=== PATIENT | male | born 1935 | race Caucasian/White ===

== ENCOUNTER 2016-11-27 16:24 | Inpatient (IN) | payer OTHER, MEDICARE ==
[~2016-11-27] VITALS: Ht 177.8 cm; Wt 57.0 kg
[2016-11-30] MEDS ORDERED: FERR1TAB36 PO (12:23)
[2016-11-30] MEDS ORDERED: LOSA100T PO (12:23)
[2016-11-30] MEDS ORDERED: CALC0.25 PO (12:23)
[2016-11-30] MEDS ORDERED: VITA10004 PO (12:23)
[2016-11-30] MEDS ORDERED: OMEP40CA2 PO (12:23)
[2016-11-30] MEDS ORDERED: LATA0.002 EACH EYE (12:23)
[2016-11-30] MEDS ORDERED: ATOR10TA15 PO (12:23)
[2016-12-04] VITALS (7 sets, daily range): BP systolic 98–129; BP diastolic 64–70; PULSE 56–76; RESP 16–20; TEMP 97.4–98.1; O2SAT 97–100
[2016-12-04] MEDS ORDERED: LACTATED RINGER'S 1000 ML INJ 1,000 ML IV ONE (12:00)
[2016-12-04] MEDS ORDERED: ONDANSETRON HCL 4 MG/2 ML VIAL IV PUSH ONE (12:00)
[2016-12-04] MEDS ORDERED: PROPOFOL 200 MG/20 ML AMP IV ONE (12:00)
[2016-12-04] MEDS ORDERED: NEOSTIGMINE 3 MG/3 ML SYR IV ONE (12:00)
[2016-12-04] MEDS ORDERED: NITROGLYCERIN 50 MG/DEXTROSE 5% SOLN 250 ML BTL IV ONE (12:00)
[2016-12-04] MEDS ORDERED: SODIUM CHLOR 0.9% 1000 ML INJ 1,000 ML IV ONE (12:00)
[2016-12-04] MEDS ORDERED: PHENYLEPH/NS 1000 MCG/10 ML SYR IV ONE (12:00)
[2016-12-04] MEDS ORDERED: ALVIMOPAN 12 MG CAPSULE - On Call PO SCH (12:30)
[2016-12-04] MEDS ORDERED: DEXT 5%-NACL 0.9% 1000 ML INJ 1,000 ML IV SCH (12:30)
[2016-12-04] MEDS ORDERED: METRONIDAZOLE 500 MG/100 ML ISONTONIC SOLN IV SCH (12:30)
[2016-12-04] MEDS ORDERED: ceFAZolin 1,000 MG/NS 100 ML IV SCH ×2 (12:30)
[2016-12-04] MEDS ORDERED: METOPROLOL TARTRATE 25 MG TAB PO PRN (12:45)
[2016-12-04] MEDS ORDERED: INSULIN HUMAN REGULAR 1,000 UNITS/10 ML VIAL SQ PRN (12:45)
[2016-12-04] MEDS ORDERED: SODIUM CHLORID 0.9% 500 ML IV SCH (13:00)
[2016-12-04] MEDS ORDERED: LACTATED RINGER'S 1000 ML IV SCH (13:00)
--- NOTE | 2016-12-04 13:14 | PD.HP.UP ---
H&P Update Note The Pre-Admit History and Physical Examination regarding the above named patient was reviewed (including, but not limited to, vital signs, heart, lungs, co-morbid conditions), and upon re-examination it is noted that: the patient's condition has not significantly changed since the last examination. Micheal Lopez MD Dec 04, 2016 13:14
[2016-12-04] MEDS ORDERED: ACETAMINOPHEN 1000 MG/100 ML VIAL IV ONE (13:41)
[2016-12-04] MEDS ORDERED: DEXAMETHASONE SOD PHOS 4 MG/ML VIAL ONE (13:41)
[2016-12-04] MEDS ORDERED: FAMOTIDINE 20 MG/2 ML VIAL ONE (13:41)
[2016-12-04] MEDS ORDERED: BUPIVACAINE HCL PF 0.5% 30 ML VIAL ONE (14:31)
[2016-12-04] MEDS ORDERED: ACETAMINOPHEN/HYDROcodone 325 MG/5 MG TAB PO PRN (15:45)
[2016-12-04] MEDS ORDERED: POTASSIUM CHLOR 20 MEQ PREMIX 100 ML IV PRN (15:45)
[2016-12-04] MEDS ORDERED: NALOXONE HCL 0.4 MG/ML AMP IV PRN (15:45)
[2016-12-04] MEDS ORDERED: ACETAMINOPHEN 325 MG TAB PO PRN (15:45)
[2016-12-04] MEDS ORDERED: BUPIVACAINE HCL PF 0.5% 30 ML VIAL NB SCH (15:45)
[2016-12-04] MEDS ORDERED: BENZOCAINE 6 MG/MENTHOL 10 MG LOZENGE SUCK-ON PRN (15:45)
[2016-12-04] MEDS ORDERED: ONDANSETRON HCL 4 MG/2 ML VIAL IV PRN (15:45)
[2016-12-04] MEDS ORDERED: ENALAPRILAT 2.5 MG/2 ML VIAL IV PRN (15:45)
[2016-12-04] MEDS ORDERED: SODIUM CHLORIDE 0.9% FLUSH 5 ML FLUSH IVF PRN (15:45)
[2016-12-04] MEDS ORDERED: POTASSIUM CHLOR 40 MEQ PREMIX 100 ML IV PRN (15:45)
[2016-12-04] MEDS ORDERED: Post-op Orders (for Pharmacy) MISC XX ONE (15:45)
[2016-12-04] MEDS ORDERED: ENALAPRILAT 1.25 MG/ML VIAL IV PRN (15:45)
[2016-12-04] MEDS: D5-NS + KCL 20 MEQ INJ 1,000 ML IV SCH ×2 (15:45→22:34)
[2016-12-04] MEDS ORDERED: fentaNYL CITRATE 250 MCG/5 ML AMP ONE (15:56)
--- NOTE | 2016-12-04 15:57 | HHI.PR ---
Immediate Post Op Note Procedure Date: Dec 04, 2016 Pre Op Diagnosis: Cancer asc colon Post Op Diagnosis: Same Surgeon: Micheal Lopez Relationship Executive(s): Teri Procedure: Exploratory lap + asc colectomy Findings: high grade obstructing cancer asc colon, liver/GB normal, SB normal Complications: None Specimen(s) removed: Asc colon Estimated blood loss: 75 cc Anesthesia: General Drains: None IVF Patient to: PACU Patient Condition: Good Micheal Lopez MD Dec 04, 2016 15:57
[2016-12-04] MEDS ORDERED: *morphine SULFATE 8 MG/ML PERIprocedure ONLY ONE ×3 (16:08→16:35)
[2016-12-04] MEDS ORDERED: DO NOT ADM ANY ANTICOAGULANT DRUGS XX PRN (16:30)
[2016-12-04] MEDS: KETOROLAC TROMETHAMINE 30 MG/ML (IVP) VIAL IVP PRN (16:40)
[2016-12-04] MEDS: MORPHINE SULFATE 30 MG/30 ML PCA IV SCH (17:04)
[2016-12-04] MEDS ORDERED: HETASTARCH 6%/LACTAT LYTES INJ 500 ML ONE (17:33)
[2016-12-04] MEDS ORDERED: FUROSEMIDE 20 MG/2 ML VIAL ONE (17:34)
[2016-12-04] MEDS ORDERED: HETASTARCH 6%/LACTAT LYTES INJ 500 ML IV ONE (18:15)
[2016-12-04] MEDS ORDERED: FUROSEMIDE 20 MG/2 ML VIAL IV PUSH SCH (18:15)
[2016-12-04] MEDS: LATANOPROST 0.005% OPHT SOLN 2.5 ML BTL EACH EYE SCH (21:00)
[2016-12-04] MEDS: METOCLOPRAMIDE HCL 10 MG/2 ML VIAL IVS SCH (22:29)
[2016-12-04] MEDS: metroNIDAZOLE 500 MG INJ 100 ML IV SCH (22:29)
[2016-12-04] MEDS: SODIUM CHLORIDE 0.9% FLUSH 5 ML FLUSH IVF SCH (22:30)
[2016-12-04] MEDS: ATORVASTATIN 10 MG TAB PO SCH (22:30)
[2016-12-04] MEDS: LOSARTAN 50 MG TAB PO SCH (22:30)
[2016-12-05] VITALS (17 sets, daily range): BP systolic 90–137; BP diastolic 55–70; PULSE 68–104; RESP 16–20; TEMP 97.5–98.3; O2SAT 96–100
[2016-12-05] MEDS: PCA - TOTAL MG MORPHINE DELIVERED PER SHIFT SCH ×4 (06:00→22:30)
[2016-12-05] MEDS: MORPHINE SULFATE 30 MG/30 ML PCA IV SCH ×2 (06:17→22:11)
[2016-12-05] MEDS: metroNIDAZOLE 500 MG INJ 100 ML IV SCH ×2 (06:25→13:00)
[2016-12-05 07:09] LABS: AUTOMATED NEUTROPHIL # 9.7 TH/MM3 (1.8-7.7); BASOPHIL % 0.1 % (0.0-2.0); HEMATOCRIT 30.7 % (39.0-51.0); HEMO FLAGS DIFF FINAL; LYMPH % 10.1 % (9.0-44.0); LYMPHOCYTE # 1.2 TH/MM3 (1.0-4.8); MEAN CELL VOLUME 97.2 FL (80.0-100.0); MEAN CORPUSCULAR HEMOGLOBIN 31.4 PG (27.0-34.0); MEAN CORPUSCULAR HGB CONC 32.3 % (32.0-36.0); MONO % 6.3 % (0.0-8.0); NEUT % 83.5 % (16.0-70.0); PLATELET COUNT 175 TH/MM3 (150-450); RED BLOOD COUNT 3.16 MIL/MM3 (4.50-5.90); RED CELL DISTRIBUTION WIDTH 15.1 % (11.6-17.2); WHITE BLOOD COUNT 11.7 TH/MM3 (4.0-11.0)
[2016-12-05 07:32] LABS: BICARBONATE 20.9 MEQ/L (21.0-32.0); POTASSIUM 4.8 MEQ/L (3.5-5.1)
[2016-12-05 07:45] LABS: CALCIUM-PROTEIN CORRECTED 8.5 MG/DL (8.5-10.1)
[2016-12-05] MEDS: PANTOPRAZOLE SODIUM 40 MG VIAL IVP SCH (08:54)
[2016-12-05] MEDS: PANTOPRAZOLE SOD 40 MG DELAYED RELEASE TAB PO SCH (08:54)
[2016-12-05] MEDS: METOCLOPRAMIDE HCL 10 MG/2 ML VIAL IVS SCH ×3 (08:55→20:00)
[2016-12-05] MEDS: ALVIMOPAN 12 MG CAPSULE - Post-op dosing PO SCH ×2 (08:56→20:00)
[2016-12-05] MEDS: SODIUM CHLORIDE 0.9% FLUSH 5 ML FLUSH IVF SCH ×2 (08:58→20:01)
[2016-12-05] MEDS: D5-NS + KCL 20 MEQ INJ 1,000 ML IV SCH ×3 (11:22→20:49)
[2016-12-05] MEDS: LOSARTAN 50 MG TAB PO SCH (20:00)
[2016-12-05] MEDS: ATORVASTATIN 10 MG TAB PO SCH (20:00)
[2016-12-05] MEDS: LATANOPROST 0.005% OPHT SOLN 2.5 ML BTL EACH EYE SCH (20:02)
[2016-12-05] MEDS ORDERED: ALVIMOPAN 12 MG CAPSULE PO SCH (21:00)
[2016-12-06] VITALS (18 sets, daily range): BP systolic 124–152; BP diastolic 68–83; PULSE 64–126; RESP 16–20; TEMP 97.8–98.9; O2SAT 97–99
[2016-12-06] MEDS: KETOROLAC TROMETHAMINE 30 MG/ML (IVP) VIAL IVP PRN (02:53)
--- NOTE | 2016-12-06 06:38 | MP ---
cc: MIGUE SOSA M.D. 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 Sosa ORDER DESK CALLER Dr. Jorge L Williamson PROCEDURE The patient was placed in the supine position. After adequate general anesthesia, his abdomen was prepped with Betadine solution and draped in the usual sterile fashion. With Dr. Williamson's assistance, the abdomen was opened through an infraumbilical transverse incision dividing the rectus muscles with electrocautery. Exploration revealed a palpable tumor in the ascending colon. There was some serosal puckering, but the tumor was not adherent to any surrounding structures. There did not appear to be any obvious adenopathy. The distal colon was palpated carefully and felt to be pretty unremarkable. The small bowel was run from the ligament of Treitz down to the ileocecal valve and was unremarkable. Liver and gallbladder were normal. The stomach and duodenum were unremarkable. The great vessels were of normal caliber, but slightly calcified. First, the right colon was mobilized medially by dividing along the white line of Toldt. The right ureter was identified and carefully preserved. Dissection then proceeded up taking down attachments to the hepatic flexure entering the lesser sac and taking the gastrocolic omentum off the transverse colon. In the region of the right transverse colon, the bowel was divided using the JEN stapling device. The major vascular pedicles were taken between Omayra's obtaining hemostasis with Vicryl ties. The bowel was then divided in the terminal ileum using two Crystal clamps. Bowel continuity was restored by firing the JEN stapler across the antimesenteric ends of the bowel closing the enterotomy with a TA-60 stapler. The mesenteric defect closed with a running Vicryl suture and a 3-0 Vicryl crotch suture was placed as well. The abdomen is irrigated copiously. Hemostasis achieved at all sites. The transverse incision closed anatomically in two layers using #1 PDS sutures to reapproximate the respective fascial layers. On-Q catheters were placed into the rectus sheath on both sides and brought up through subcutaneous tunnel above the transverse incision. The subcu tissues were irrigated copiously and the skin closed with a running Vicryl suture. Wound area washed with normal saline and dried, sterile dressing of Telfa and gauze applied. The patient tolerated the procedure quite well and was brought to recovery room in stable condition. Sponge and needle counts were correct at the end of the procedure. MD JODY Roach/MARIA FERNANDA /11:37 AM /6:30 AM
[2016-12-06 06:44] LABS: AUTOMATED NEUTROPHIL # 8.7 TH/MM3 (1.8-7.7); BASOPHIL % 0.4 % (0.0-2.0); EOSINOPHIL # 0.1 TH/MM3 (0-0.4); EOSINOPHIL % 0.8 % (0.0-4.0); HEMATOCRIT 29.3 % (39.0-51.0); HEMO FLAGS DIFF FINAL; LYMPH % 16.1 % (9.0-44.0); LYMPHOCYTE # 1.9 TH/MM3 (1.0-4.8); MEAN CELL VOLUME 95.9 FL (80.0-100.0); MEAN CORPUSCULAR HEMOGLOBIN 32.7 PG (27.0-34.0); MEAN CORPUSCULAR HGB CONC 34.1 % (32.0-36.0); NEUT % 75.7 % (16.0-70.0); PLATELET COUNT 171 TH/MM3 (150-450); RED BLOOD COUNT 3.05 MIL/MM3 (4.50-5.90); RED CELL DISTRIBUTION WIDTH 15.3 % (11.6-17.2); WHITE BLOOD COUNT 11.5 TH/MM3 (4.0-11.0)
[2016-12-06 06:55] LABS: BICARBONATE 19.2 MEQ/L (21.0-32.0); POTASSIUM 4.2 MEQ/L (3.5-5.1)
[2016-12-06 07:10] LABS: CALCIUM-PROTEIN CORRECTED 8.7 MG/DL (8.5-10.1)
--- NOTE | 2016-12-06 08:18 | HHI.PR ---
Subjective Remarks C/R Surg POD # 2 afebrile, VSS UO good +flatus Objective - Vital Signs Date Time Temp Pulse Resp B/P Pulse Ox O2 Delivery O2 Flow Rate FiO2 12/06/16 07:38 64 12/06/16 07:38 Room Air 12/06/16 04:00 98.9 18 152/83 98 12/05/16 17:26 21 12/04/16 17:45 3 Result Diagram: 12/06/16 0549 12/06/16 0549 Objective Remarks PE alert Abd - soft, wound dry, min tympany A/P Assessment and Plan Imp: stable post-op OOB start PO dc Micheal Wright MD Dec 06, 2016 08:18
[2016-12-06] MEDS: ALVIMOPAN 12 MG CAPSULE - Post-op dosing PO SCH ×2 (08:58→22:10)
[2016-12-06] MEDS: PANTOPRAZOLE SOD 40 MG DELAYED RELEASE TAB PO SCH (08:58)
[2016-12-06] MEDS: PANTOPRAZOLE SODIUM 40 MG VIAL IVP SCH (08:59)
[2016-12-06] MEDS: METOCLOPRAMIDE HCL 10 MG/2 ML VIAL IVS SCH ×2 (08:59→22:11)
[2016-12-06] MEDS: SODIUM CHLORIDE 0.9% FLUSH 5 ML FLUSH IVF SCH ×2 (08:59→22:11)
[2016-12-06] MEDS: D5-NS + KCL 20 MEQ INJ 1,000 ML IV SCH ×2 (09:01→21:49)
[2016-12-06] MEDS ORDERED: METOPROLOL TARTRATE 25 MG TAB PO ONE (13:30)
[2016-12-06] MEDS: PCA - TOTAL MG MORPHINE DELIVERED PER SHIFT SCH ×2 (14:00→22:00)
[2016-12-06] MEDS: ACETAMINOPHEN/HYDROcodone 325 MG/5 MG TAB PO PRN (18:38)
[2016-12-06] MEDS: FUROSEMIDE 20 MG/2 ML VIAL IV PUSH SCH (21:00)
[2016-12-06] MEDS: LATANOPROST 0.005% OPHT SOLN 2.5 ML BTL EACH EYE SCH (21:00)
[2016-12-06] MEDS: ATORVASTATIN 10 MG TAB PO SCH (22:10)
[2016-12-06] MEDS: LOSARTAN 50 MG TAB PO SCH (22:10)
[2016-12-06] MEDS: MORPHINE SULFATE 30 MG/30 ML PCA IV SCH (22:32)
[2016-12-07] VITALS: PULSE 76
[2016-12-07] MEDS: MORPHINE SULFATE 30 MG/30 ML PCA IV SCH (01:49)
[2016-12-07 04:28] VITALS: BP 107/74; PULSE 71; RESP 16; TEMP 97.8; O2SAT 100
[2016-12-07 04:29] VITALS: BP 158/83
[2016-12-07] MEDS: ACETAMINOPHEN/HYDROcodone 325 MG/5 MG TAB PO PRN (07:45)
[2016-12-07 08:15] VITALS: BP_SYST 70; PULSE 72; RESP 18; TEMP 98; O2SAT 98
[2016-12-07] MEDS: ALVIMOPAN 12 MG CAPSULE - Post-op dosing PO SCH (08:27)
[2016-12-07] MEDS: FUROSEMIDE 20 MG/2 ML VIAL IV PUSH SCH (08:27)
[2016-12-07] MEDS: PANTOPRAZOLE SOD 40 MG DELAYED RELEASE TAB PO SCH (08:27)
[2016-12-07] MEDS: PANTOPRAZOLE SODIUM 40 MG VIAL IVP SCH (08:27)
[2016-12-07] MEDS: SODIUM CHLORIDE 0.9% FLUSH 5 ML FLUSH IVF SCH (08:27)
[2016-12-07 11:13] VITALS: BP 134/74; PULSE 68; RESP 18; TEMP 98; O2SAT 98
--- NOTE | 2016-12-28 18:31 | PQ ---
Physician Query Response Document PATIENT: ANGEL RUEDA : 1935 ADMIT DATE: 12/04/2016 11:54 AM DISCH DATE: 12/07/2016 5:55 PM RESPONDING PROVIDER #: AHRitter QUERY TEXT: Clinical Significance The diagnosis documented below requires documentation to state the clinical significance: CHRONIC KID DAVID DISEASE Please respond and also state in your next progress note whether the condition is: -- Clinically insignificant -- Clinically significant, and please also state why it is clinically significant -- Unable to determine clinical significance -- Other, please specify PLEASE CALL EX [phone] FOR QUESTIONS OR ASSISTANCE The patient's Clinical Indicators include: THE FOLLOWING CRITERIA FROM THE [facility] OUTLINE THE STAGES OF THE CHRONIC KIDNEY D ISEASE: ? ACUTE KIDNEY INJURY ?CKD STAGE 1 (GFR >90) ?CKD STAGE 4 (GFR 15-29) ?CKD STAGE 2 (GFR 60-89)?CKD STAGE 5 (GFR <15) ?CKD STAGE 3 (GFR 30-59)?ESRD (NEED FOR DIALYSIS) CLINICAL INDICATORS: 12/05/16-12/06/16- BUN=15-10 CREATINIE=2.23- 2.08 GFR=28- 31 Query created by: Eliza Mckeon on 12/06/2016 10:41 AM RESPONSE TEXT: Clinically insignificant Electronically signed by: Micheal Lopez MD 12/28/2016 6:26 PM
--- NOTE | 2016-12-30 10:46 | MD ---
cc: MIGUE SOSA MD, PATRICIA ADMISSION DATE: 12/04/2016 DISCHARGE DATE: 12/07/2016 ADMISSION DIAGNOSIS Carcinoma of the ascending colon. PROCEDURE: 12/04/2016: exploratory laparotomy with ascending colectomy. POSTOPERATIVE DIAGNOSIS: Carcinoma of the ascending colon, T3 N0 M0. HISTORY OF PRESENT ILLNESS Mr. Hyman is an 81-year-old male who has been in relatively good health, having a colonoscopy recently showing a carcinoma of the hepatic flexure of the ascending colon. He had a metastatic workup which was pretty unremarkable. He does continue to have fairly significant abdominal pain and I believe he has lost some weight. He denies any rectal bleeding. No significant diarrhea or melena. No nausea or vomiting, though he does have gas cramps. The patient was admitted at this time for definitive surgical resection of the ascending colon cancer. Please see his admitting history and physical for more complete past medical and surgical history. PERTINENT PHYSICAL A very pleasant, thin male in no acute distress. Abdomen: Soft doughy, mildly distended, some tympany. Bowel sounds are normal. No masses or tenderness appreciated. Anal inspection revealed benign canal. Digital exam revealed good tone. No masses or tenderness. No blood on the finger. HOSPITAL COURSE: After admission the patient was taken to the operating room on December 04, 2016 at which point he underwent an exploratory laparotomy and ascending colectomy. He did have a palpable tumor of the ascending colon with some serosal puckering but it was not adherent to any surrounding structures. Liver and gallbladder were unremarkable. No signs of any metastatic disease in the abdomen. The patient tolerated the procedure well. He was initially stabilized in the Intensive Care Unit. His GI tract function returned quite promptly and his diet was advanced accordingly. He was able to have his IV fluids tapered. His Reagan catheter was discontinued and he urinated without trouble. The patient continued to gain some strength and was eating well enough having good bowel movements to be able to be considered ready for discharge home on December 07, 2016. Final pathology did reveal a moderately differentiated adenocarcinoma invading through the muscularis propria but not to the serosal surface, 19 lymph nodes were negative for cancer. Final stage was T3 N0 M0. DISCHARGE INSTRUCTIONS The patient was discharged eating a regular diet. He was encouraged to ambulate daily avoiding any heavy lifting or straining. All preop medications were to be resumed. The patient will be seen in one weeks' time for routine follow-up. Any problems prior to his scheduled office visit he was encouraged to call for more urgent attention. MD JODY Roach/MARIUM /4:49 PM /10:34 AM
== END 2016-12-07 17:55 | disposition home or self-care (01) | DRG 330 ==
LOC: HSDI 12-04 11:54 → HCIS 12-04 18:26
PROVIDERS: ADMIT Colon & Rectal Surgery; ATTEND Colon & Rectal Surgery
PROC: 0DBK0ZZ Excision of Ascending Colon, Open Approach (ICD-10-PCS; principal; 2016-12-04 14:06)
DX: C18.2 Malignant neoplasm of ascending colon (principal); K56.69 Other intestinal obstruction
CPT/HCPCS: 80048; 84155; 85025; 86850; 86900; 86901; 88305; 88307; 88309; 94150; C9113; J0131; J0690; J1100; J1885; J1940; J2270; J2370; J2405; J2710; J2765; J3010; J3480; J7030; J7040; J7120

== ENCOUNTER → 2016-11-30 | Outpatient (CLI) | payer OTHER ==
[~2016-11-30] MED LIST: ASPI81TA21 PO; ATOR10 PO; ATOR10TA15 PO; CALC0.25 PO; FERR1TAB36 PO; LATA0.002 EACH EYE; LORTA5 PO; LOSA100T PO; LOSA50TA PO; METO25 PO; MULT-65 PO; NITR0.4S SL; OMEP40CA2 PO; REGL5TAB PO; TAMS0.4C67 PO; TYLETAB34 PO; ULTR50TA PO; VITA10004 PO
[2016-11-30 13:19] LABS: AUTOMATED NEUTROPHIL # 4.1 TH/MM3 (1.8-7.7); BASOPHIL # 0.1 TH/MM3 (0-0.2); EOSINOPHIL # 0.3 TH/MM3 (0-0.4); EOSINOPHIL % 4.5 % (0.0-4.0); HEMATOCRIT 35.1 % (39.0-51.0); HEMO FLAGS DIFF FINAL; LYMPH % 31.8 % (9.0-44.0); LYMPHOCYTE # 2.3 TH/MM3 (1.0-4.8); MEAN CORPUSCULAR HEMOGLOBIN 31.9 PG (27.0-34.0); MEAN CORPUSCULAR HGB CONC 33.2 % (32.0-36.0); MONO % 6.6 % (0.0-8.0); NEUT % 56.1 % (16.0-70.0); PLATELET COUNT 212 TH/MM3 (150-450); RED BLOOD COUNT 3.66 MIL/MM3 (4.50-5.90); RED CELL DISTRIBUTION WIDTH 15.3 % (11.6-17.2); WHITE BLOOD COUNT 7.3 TH/MM3 (4.0-11.0)
[2016-11-30 13:27] LABS: APTT (PATIENT) 25.4 SEC (24.3-30.1); INTERNATIONAL NORMALIZED RATIO 0.9 RATIO; PROTHROMBIN TIME - PATIENT 10.2 SEC (9.8-11.6)
--- NOTE | 2016-11-30 13:28 | RADRPT ---
EXAM DATE/TIME: 11/30/2016 12:55 [facility] COMPARISON: CHEST SINGLE AP, May 11, 2014, 10:41. CHEST PA & LAT, May 07, 2014, 0:10. INDICATIONS : Evaluate for pneumonia, pneumothorax or communicable disease. Pre op colectomy. MEDICAL HISTORY : Cardiovascular disease. SURGICAL HISTORY : CABG. ENCOUNTER: Initial ACUITY: 1 day PAIN SCORE: 0/10 LOCATION: Bilateral chest FINDINGS: PA and lateral views of the chest demonstrate the lungs to be symmetrically aerated without evidence of mass, infiltrate or effusion. There is hyperaeration of both lung carlos. The cardiomediastinal co ntours are unremarkable. There is evidence of previous cardiothoracic surgery. Osseous structures ar e intact. CONCLUSION: No acute disease. No significant change has occurred. David Blair MD on November 30, 2016 at 13:26 Board Certified Radiologist. This report was verified electronically.
[2016-11-30 13:39] LABS: BLOOD, URINE NEG (NEG); GLUCOSE,URINE NEG (NEG); KETONE, URINE NEG (NEG); NITRITE,URINE NEG (NEG); PH, URINE 6.5 (5.0-8.5); SQUAMOUS EPITHELIAL CELL URINE <1 /hpf (0-5); URINE COLOR LIGHT-YELLOW (YELLW/STRAW)
[2016-11-30 13:44] LABS: COMMENT (UR) CULT NOT INDICATED; CULTURE IF INDICATED CULT NOT INDICATED
[2016-11-30 13:47] LABS: ANION GAP 7 MEQ/L (5-15); AST (GOT) 7 U/L (15-37); BICARBONATE 26.1 MEQ/L (21.0-32.0); BLOOD UREA NITROGEN 21 MG/DL (7-18); CHLORIDE 110 MEQ/L (98-107); GLOMERULAR FILTRATION RATE 31 ML/MIN (>89); GLUCOSE,FASTING 88 MG/DL (74-99); POTASSIUM 4.6 MEQ/L (3.5-5.1); SODIUM (NA) 143 MEQ/L (136-145)
[2016-11-30 13:52] LABS: ALKALINE PHOSPHATASE 60 U/L (45-117); ALT (GPT) 13 U/L (12-78); TOTAL BILIRUBIN ADULT 0.6 MG/DL (0.2-1.0)
--- NOTE | 2016-11-30 21:38 | EKG ---
Date Performed: 11/30/2016 Time Performed: 12:13:46 PTAGE: 81 years EKG: Sinus rhythm NONSPECIFIC ST & T-WAVE ABNORMALITY BORDERLINE ECG NO PREVIOUS TRACING DOCTOR: Sudhir Yeh Interpretating Date/Time 11/30/2016 21:36:53
== END ==
LOC: CPRE 11:46
PROVIDERS: ATTEND Colon & Rectal Surgery
DX: Z01.810 Encounter for preprocedural cardiovascular examination (principal); Z01.811 Encounter for preprocedural respiratory examination; Z01.812 Encounter for preprocedural laboratory examination; C18.3 Malignant neoplasm of hepatic flexure
CPT/HCPCS: 36415; 71020; 80053; 81001; 82378; 85025; 85610; 85730; 93005

== ENCOUNTER 2016-12-10 10:53 | Emergency (ER) | payer OTHER ==
[~2016-12-10] VITALS: Ht 177.8 cm; Wt 60.0 kg
[~2016-12-10 10:53] MED LIST changes: -ASPI81TA21 PO; -ATOR10 PO; -FERR1TAB36 PO; -LORTA5 PO; -LOSA50TA PO; -METO25 PO; -MULT-65 PO; -NITR0.4S SL; -REGL5TAB PO; -TAMS0.4C67 PO; -TYLETAB34 PO; -ULTR50TA PO
[2016-12-10 10:57] VITALS: BP 137/67; PULSE 90; RESP 20; TEMP 97.5; O2SAT 92
[2016-12-10] MEDS ORDERED: SODIUM CHLORID 0.9% 500 ML INJ 500 ML IV ONE ×2 (12:00→13:30)
[2016-12-10] MEDS ORDERED: SODIUM CHLORIDE 0.9% FLUSH 5 ML FLUSH IVF PRN (12:00)
--- NOTE | 2016-12-10 12:00 | PD ---
HPI Chief Complaint: GI Complaint Time Seen by Provider: 12:00 Travel History International Travel<30 days: No Contact w/Intl Traveler<30days: No Traveled to known affect area: No History of Present Illness HPI 81-year-old male with a history of hypertension, hyperlipidemia, CAD, atrial fibrillation, chronic kidney disease stage III, colon cancer status post colectomy 6 days ago presents to the emergency department for evaluation of nausea and vomiting. The patient states that 6 days ago he had a colectomy with reanastomosis performed by Dr. Lopez and was told that all of the colon cancer was removed. States that he stayed in the hospital for 4 days after the surgery and was discharged 3 days ago without any pain medication or diet restrictions. States that he has had abdominal pain since the surgery, points to his periumbilical region when he complains of abdominal pain. States that the last 2 nights he's had nausea, vomiting and hiccuping. He is also coughing a little, states last night he coughed with clear mucus production. He denies any fever, chills, chest pain, shortness of breath, burning with urination, painful urination. States he has had decreased urinary output but he is producing urine, last urinated this morning. No other complaints. PFSH Past Medical History Cancer: Yes (colon) Cardiovascular Problems: Yes (BYPASS ) Diabetes: No Endocrine: No Gastrointestinal Disorders: Yes (gerd) Glaucoma: Yes Genitourinary: Yes (frequency) Hepatitis: No Hiatal Hernia: No Hypertension: Yes (on med) Immune Disorder: No Medical other: Yes (weakness and loss of appetite) Musculoskeletal: No Neurologic: No Psychiatric: No Respiratory: No Thyroid Disease: No Past Surgical History Abdominal Surgery: Yes (BOWEL RESECTION 12/04/16) AICD: No Cardiac Surgery: Yes (4 bypass 2013) Ear Surgery: No Endocrine Surgery: No Eye Surgery: No Genitourinary Surgery: No Gynecologic Surgery: No Joint Replacement: No Oral Surgery: Yes (dentures) Pacemaker: No Thoracic Surgery: No Other Surgery: Yes Social History Alcohol Use: No Tobacco Use: Yes (4 CIGARS A DAY) Substance Use: No Allergies-Medications (Allergen,Severity, Reaction): Coded Allergies: No Known Allergies (Unverified , 12/10/16) Reported Meds & Prescriptions Reported Meds & Active Scripts Active Reported Losartan (Losartan Potassium) 50 Mg Tab 50 Mg PO HS Latanoprost Opth Drops (Latanoprost) 0.005% Drops 1 Drop EACH EYE HS Refrigerate until opened. Atorvastatin (Atorvastatin Calcium) 10 Mg Tab 10 Mg PO HS Vitamin B12 Tr (Cyanocobalamin) 1,000 Mcg Tab 1,000 Mcg PO HS Calcitriol 0.25 Mcg Cap 0.25 Mcg PO HS Review of Systems Except as stated in HPI: all other systems reviewed are Neg Physical Exam Narrative GENERAL: Well-nourished and well-developed pleasant elderly male patient in no acute distress. SKIN: Warm and dry. HEAD: Normocephalic and atraumatic. EYES: No injection, drainage, or hyphema noted. PERRLA. EOMI. ENT: No nasal drainage noted. Oropharynx is clear. NECK: Supple and the trachea is midline. CARDIOVASCULAR: Regular rate and rhythm. RESPIRATORY: Breath sounds are equal bilaterally with no accessory muscle use, wheezing, rhonchi, or crackles. GASTROINTESTINAL: Horizontal Surgical incision below the umbilicus to right lower quadrant, no erythema, no discharge or drainage. Abdomen is soft, non- tender, and nondistended. No rebound tenderness or guarding. MUSCULOSKELETAL: No obvious deformities, swelling, cyanosis, or ecchymosis is present throughout the upper and lower extremities. Patient has full range of motion without any signs of neurovascular compromise. NEUROLOGICAL: Awake, alert, and oriented. Normal speech and gait. Cranial nerves are grossly intact. Data Data Last Documented VS Vital Signs Date Time Temp Pulse Resp B/P Pulse Ox O2 Delivery O2 Flow Rate FiO2 12/10/16 12:01 18 97 Room Air 12/10/16 10:57 97.5 90 137/67 Orders Complete Blood Count With Diff (12/10/16 11:57) Comprehensive Metabolic Panel (12/10/16 11:57) Lipase (12/10/16 11:57) Iv Access Insert/Monitor (12/10/16 11:57) Ecg Monitoring (12/10/16 11:57) Oximetry (12/10/16 11:57) Sodium Chloride 0.9% Flush (Ns Flush) (12/10/16 12:00) Sodium Chlorid 0.9% 500 Ml Inj (Ns 500 M (12/10/16 12:00) Bladder Scan PRN (12/10/16 12:02) Chest, Single Ap (12/10/16 12:13) Metoclopramide Inj (Reglan Inj) (12/10/16 12:15) Urinalysis - C+S If Indicated (12/10/16 12:18) Sodium Chlorid 0.9% 500 Ml Inj (Ns 500 M (12/10/16 13:30) Cath For Specimen (12/10/16 14:16) Labs Laboratory Tests Test 12/10/16 12/10/16 12:03 14:38 White Blood Count 12.9 TH/MM3 Red Blood Count 3.48 MIL/MM3 Hemoglobin 10.9 GM/DL Hematocrit 33.5 % Mean Corpuscular Volume 96.0 FL Mean Corpuscular Hemoglobin 31.3 PG Mean Corpuscular Hemoglobin 32.6 % Concent Red Cell Distribution Width 14.9 % Platelet Count 220 TH/MM3 Mean Platelet Volume 8.0 FL Neutrophils (%) (Auto) 80.8 % Lymphocytes (%) (Auto) 10.0 % Monocytes (%) (Auto) 8.4 % Eosinophils (%) (Auto) 0.5 % Basophils (%) (Auto) 0.3 % Neutrophils # (Auto) 10.4 TH/MM3 Lymphocytes # (Auto) 1.3 TH/MM3 Monocytes # (Auto) 1.1 TH/MM3 Eosinophils # (Auto) 0.1 TH/MM3 Basophils # (Auto) 0.0 TH/MM3 CBC Comment DIFF FINAL Differential Comment Sodium Level 141 MEQ/L Potassium Level 4.5 MEQ/L Chloride Level 106 MEQ/L Carbon Dioxide Level 27.0 MEQ/L Anion Gap 8 MEQ/L Blood Urea Nitrogen 30 MG/DL Creatinine 1.97 MG/DL Estimat Glomerular Filtration 33 ML/MIN Rate Random Glucose 117 MG/DL Calcium Level 8.7 MG/DL Total Bilirubin 0.7 MG/DL Aspartate Amino Transf 23 U/L (AST/SGOT) Alanine Aminotransferase 12 U/L (ALT/SGPT) Alkaline Phosphatase 54 U/L Total Protein 5.9 GM/DL Albumin 2.8 GM/DL Lipase 58 U/L Urine Color YELLOW Urine Turbidity CLEAR Urine pH 6.0 Urine Specific [place] 1.020 Urine Protein TRACE mg/dL Urine Glucose (UA) NEG mg/dL Urine Ketones NEG mg/dL Urine Occult Blood NEG Urine Nitrite NEG Urine Bilirubin NEG Urine Urobilinogen 2.0 MG/DL Urine Leukocyte Esterase NEG Urine RBC 1 /hpf Urine WBC 1 /hpf Urine Squamous Epithelial <1 /hpf Cells Urine Bacteria RARE /hpf Urine Mucus FEW /lpf Microscopic Urinalysis Comment CULT NOT INDICATED MDM Medical Decision Making Medical Screen Exam Complete: Yes Emergency Medical Condition: Yes Differential Diagnosis Dehydration versus acute kidney injury versus electrolyte abnormality versus pneumonia versus UTI Narrative Course 81-year-old male presents to the emergency department for evaluation of nausea, vomiting and hiccups 6 days postop partial colectomy. Patient is afebrile, vital signs are stable. Abdominal examination is benign. IV access is obtained , labs were drawn and sent. Patient is administered IV fluids and Reglan. CBC shows an elevated white blood cell count 12.9, mild anemia with a hemoglobin of 10.9, hematocrit 33.5. This is consistent with the patient's baseline. CMP shows renal insufficiency with a creatinine of 1.97, GFR 33. This is consistent with the patient's baseline renal function. His BUN is a little elevated at 30, likely secondary to dehydration. Chest x-ray shows small amount of free air beneath right hemidiaphragm but likely normal postoperative finding with recent colectomy. Urinalysis shows rare bacteria and few mucus, otherwise unremarkable. The patient has received a liter of fluid. He has been stable and without complaint. Unfortunately the patient was unable to produce a urine specimen after a liter of fluid - he states he feels nervous about urinating here and seems to have an element of stage fright therefore we did have to cath him for specimen to rule out UTI. About 400 cc urine with straight cath. He may have some mild urinary retention but he is reporting he has been able to urinate at home and 400 cc is not all that much. Discussed importance of drinking plenty of fluids. Advised to follow-up with Dr. Lopez. Patient and family verbalized understanding and agreement with treatment plan. I discussed the case with my attending physician Dr. Self who is aware of the patients history, physical examination findings, and treatment plan. Diagnosis Primary Impression: Mild dehydration Referrals: Primary Care Physician Patient Instructions: Dehydration (ED), General Instructions Additional Instructions: Drink plenty of fluids. Increase water intake. Follow-up with Dr. Lopez. Return to the ED for any acute worsening of symptoms. Med/Other Pt SpecificInfo: No Change to Meds Disposition: 01 DISCHARGE HOME Condition: Stable Verenice Haile Dec 10, 2016 12:00
[2016-12-10 12:01] VITALS: RESP 18; O2SAT 97
[2016-12-10 12:12] LABS: AUTOMATED NEUTROPHIL # 10.4 TH/MM3 (1.8-7.7); BASOPHIL % 0.3 % (0.0-2.0); EOSINOPHIL # 0.1 TH/MM3 (0-0.4); EOSINOPHIL % 0.5 % (0.0-4.0); HEMATOCRIT 33.5 % (39.0-51.0); HEMO FLAGS DIFF FINAL; LYMPHOCYTE # 1.3 TH/MM3 (1.0-4.8); MEAN CORPUSCULAR HEMOGLOBIN 31.3 PG (27.0-34.0); MEAN CORPUSCULAR HGB CONC 32.6 % (32.0-36.0); MONO % 8.4 % (0.0-8.0); NEUT % 80.8 % (16.0-70.0); PLATELET COUNT 220 TH/MM3 (150-450); RED BLOOD COUNT 3.48 MIL/MM3 (4.50-5.90); RED CELL DISTRIBUTION WIDTH 14.9 % (11.6-17.2); WHITE BLOOD COUNT 12.9 TH/MM3 (4.0-11.0)
[2016-12-10] MEDS ORDERED: METOCLOPRAMIDE HCL 10 MG/2 ML VIAL IV PUSH ONE (12:15)
[2016-12-10 12:31] LABS: ANION GAP 8 MEQ/L (5-15); AST (GOT) 23 U/L (15-37); BLOOD UREA NITROGEN 30 MG/DL (7-18); CHLORIDE 106 MEQ/L (98-107); GLOMERULAR FILTRATION RATE 33 ML/MIN (>89); SODIUM (NA) 141 MEQ/L (136-145)
[2016-12-10] MEDS ORDERED: LOSA50TA PO (12:36)
[2016-12-10 12:40] LABS: POTASSIUM 4.5 MEQ/L (3.5-5.1)
[2016-12-10 12:42] LABS: ALKALINE PHOSPHATASE 54 U/L (45-117); ALT (GPT) 12 U/L (12-78); TOTAL BILIRUBIN ADULT 0.7 MG/DL (0.2-1.0)
--- NOTE | 2016-12-10 13:01 | RADRPT ---
EXAM DATE/TIME: 12/10/2016 12:27 [facility] COMPARISON: CHEST PA & LAT, November 30, 2016, 12:55. CHEST SINGLE AP, May 11, 2014, 10:41. INDICATIONS : Nausea, vomiting x2 days. MEDICAL HISTORY : Myocardial infarction. SURGICAL HISTORY : CABG. ENCOUNTER: Initial ACUITY: 2 days PAIN SCORE: 5/10 LOCATION: Bilateral chest FINDINGS: Portable AP view of the chest demonstrates a normal-sized cardiac silhouette. Patient is post median sternotomy and CABG. There are lungs are underinflated there is elevation the right hemidiaphragm wit h linear opacities at both lung bases. No consolidation, effusion, or pneumothorax is appreciated. Th ere is suspected air beneath the right hemidiaphragm. CONCLUSION: 1. There is a small amount of free air beneath the right hemidiaphragm. Since the patient has undergo ne recent ascending colectomy approximately 5-6 days ago this is likely normal postoperative finding. 2. Underinflated examination with atelectasis at both lung bases. Angel Verde MD on December 10, 2016 at 12:55 Board Certified Radiologist. This report was verified electronically.
[2016-12-10 15:06] LABS: BACTERIA, URINE RARE /hpf; BLOOD, URINE NEG (NEG); COMMENT (UR) CULT NOT INDICATED; CULTURE IF INDICATED CULT NOT INDICATED; GLUCOSE,URINE NEG (NEG); KETONE, URINE NEG (NEG); MUCUS URINE FEW /lpf (OCC); NITRITE,URINE NEG (NEG); SQUAMOUS EPITHELIAL CELL URINE <1 /hpf (0-5); URINE COLOR YELLOW (YELLW/STRAW)
[2016-12-10] MEDS ORDERED: TYLETAB34 PO (15:33)
[2016-12-10] MEDS ORDERED: REGL5TAB PO (15:33)
== END 2016-12-10 16:10 | disposition home or self-care (01) ==
LOC: NEPC 10:53
DX: E86.0 Dehydration (principal); R11.2 Nausea with vomiting, unspecified; R10.33 Periumbilical pain; R05 Cough; R06.6 Hiccough; I12.9 Hypertensive chronic kidney disease with stage 1 through stage 4 chronic kidney disease, or unspecified chronic kidney disease; E78.5 Hyperlipidemia, unspecified; I25.10 Atherosclerotic heart disease of native coronary artery without angina pectoris; I48.91 Unspecified atrial fibrillation; N18.3 Chronic kidney disease, stage 3 (moderate); Z98.890 Other specified postprocedural states; Z72.0 Tobacco use; Z87.19 Personal history of other diseases of the digestive system; Z85.038 Personal history of other malignant neoplasm of large intestine
CPT/HCPCS: 71010; 80053; 81001; 83690; 85025; 96361; 96374; 99283; J2765; J7040; P9612